=== PATIENT | female | born 1950 | race Caucasian/White ===

== ENCOUNTER 2016-05-08 09:04 | Day surgery (SDC) | payer OTHER, BC ==
[2016-05-07 15:18] VITALS: BMI 26.5
[2016-05-08] MEDS ORDERED: PROPOFOL 60 ML ONE (09:34)
[2016-05-08 11:21] VITALS: BP 109/55; PULSE 71; TEMP 98.3
--- NOTE | 2016-05-09 12:50 | PATH ---
Surgical Pathology Report Patient Name: OSEI JACKSON [facility]. Rec. #: [id number] /Age/Gender: 1950 (Age: 65) / F Account: [id number] Location: ASU-ENDOSCOPY Taken: 05/08/2016 Received: 05/08/2016 Reported: 05/09/2016 Physicians: Radames Luis D.O. Specimen(s) Received BX DESCENDING COLON Clinical History History of resection for TVA Colon polyp, patent anastomosis, diverticulosis Final Diagnosis COLON, DESCENDING, POLYP, BIOPSY/POLYPECTOMY: TUBULAR ADENOMA. Electronically Signed José Luis Umana M.D. Gross Description Received in formalin, labeled "polyp descending" is a hsieh, irregular portion of soft tissue measuring 0.3 cm in greatest dimension. The specimen is submitted in toto in one cassette. /05/08/201605/08/2016
== END 2016-05-08 11:23 | disposition home or self-care (01) ==
LOC: JASU-ENDO 09:04
PROVIDERS: ATTEND Internal Medicine Gastroenterology
PROC: 0DBM8ZX Excision of Descending Colon, Via Natural or Artificial Opening Endoscopic, Diagnostic (ICD-10-PCS; principal; 2016-05-08 10:00)
DX: D12.4 Benign neoplasm of descending colon (principal); K57.30 Diverticulosis of large intestine without perforation or abscess without bleeding; K64.8 Other hemorrhoids; Z98.0 Intestinal bypass and anastomosis status; R19.4 Change in bowel habit; J44.9 Chronic obstructive pulmonary disease, unspecified; E03.9 Hypothyroidism, unspecified; M81.0 Age-related osteoporosis without current pathological fracture; L30.9 Dermatitis, unspecified
CPT/HCPCS: 88305-TC

== ENCOUNTER 2016-09-26 09:37 | Emergency (ER) | payer OTHER, BC ==
[2016-09-26 09:54] VITALS: BP 151/65; PULSE 75; TEMP 97.7; BMI 26.2
[2016-09-26] MEDS ORDERED: IBUPROFEN 400 MG TABLET (FP) PO ONE ×2 (11:08→11:25)
--- NOTE | 2016-09-26 11:52 | PDOC ---
History of Present Illness - General Chief Complaint: Injury Stated Complaint: RIGHT KNEE AND LEFT FOOT PAIN Time Seen by Provider: 09/26/16 10:01 - History of Present Illness Initial Comments: 09/26/16 11:44 Chief complaint: Pain right knee, left foot History of present illness: Patient tripped and fell 2 days ago, injuring her right knee and left ankle. There is persistent pain and swelling with difficulty ambulating. Pain is most severe posterior right knee and lateral left foot. Review of systems: Patient denies distal numbness tingling pain or weakness of the right lower leg or the left foot. Denies pain or injury to the head neck chest abdomen spine and pelvis or other extremities. Past medical history: COPD, hypothyroidism, osteoporosis, prior right knee surgery uncertain of exact nature Social/family history reviewed and noncontributory. Physical exam: Alert and oriented well-developed well-nourished no acute distress cheerful and cooperative. However, patient has extreme difficulty bearing weight due to pain in the knee and ankle Afebrile, vital signs normal except for minimally elevated blood pressure of 151 /65. Head atraumatic. PERRLA, fundi benign, ENT clear Neck without tenderness or deformity, good range of motion without pain. No bruits masses or nodes Chest clear to P&A, full breath sounds throughout bilaterally, no wheezes rales or rhonchi. No chest wall or rib cage tenderness or deformity CV S1 and S2 distant without murmur rub or gallop pulses full and symmetric no JVD or edema no bruits Abdomen benign Neurological C2 to 12 intact. Strength full and symmetric. No focal sensory or motor deficits. Patient ambulating with a borrowed walker with difficulty bearing weight due to injuries Extremities: Right knee-no deformity. Superficial ecchymoses in the infra patellar area, laterally. Small effusion. Mild swelling. Patella and patellar retinaculum intact and nontender. No stress tenderness or laxity of the MCL or LCL. No point tenderness joint spaces. Lockman is positive, but due to prior surgery the significance of this is uncertain. Distal pulses full, no distal sensory or motor deficits. Left ankle and foot: Swelling mild erythema and point tenderness over the fifth metatarsal. No swelling or deformity of the ankle. No tenderness of the malleoli. No instability. Impression: Probable ACL injury right knee, probable fifth metatarsal fracture, no sign of ankle trauma. Plan: X-ray and further orthopedic management depending on results. Past History - Past Medical History Allergies/Adverse Reactions: Allergies Allergy/AdvReac Type Severity Reaction Status Date / Time nickel Allergy Rash Verified 09/26/16 09:43 No Known Drug Allergies Allergy Verified 09/26/16 09:43 Home Medications: Ambulatory Orders Albuterol Sulfate Inhaler - [Ventolin HFA Inhaler -] 1 inh PO DAILY PRN Calcium Carbonate [Calcium] 600 mg PO DAILY 08/22/15 Cholecalciferol (Vitamin D3) [Vitamin D3] 2,000 unit PO DAILY 08/22/15 Levothyroxine [Synthroid -] 75 mcg PO DAILY 08/22/15 Tiotropium [place] [Spiriva] 2 inh PO DAILY 08/22/15 Alendronate Sodium/Vitamin D3 [Fosamax Plus D 70 mg-5,600 Iu vIT d] 1 each PO Q7D 09/12/15 Salmeterol/Fluticasone [Advair 500Mcg/50Mcg -] 1 inh PO DAILY 05/07/16 Anemia: No Asthma: No Cancer: No Cardiac Disorders: No CVA: No COPD: Yes (uses inhaler) CHF: No Dementia: No Diabetes: No Dialysis: No GI Disorders: No Disorders: Yes (DIVERTICULOSIS,INTERNAL HEMORRHOIDS,SIGMOID MASS) HTN: No Hypercholesterolemia: No HIV: No Kidney Stones: No Liver Disease: No Suicide Attempt (Hx): No Seizures: No Thyroid Disease: Yes (HYPO) - Surgical History Abdominal Surgery: Yes (COLON RESECTION FROM LARGE ADENOMA) Appendectomy: No Cardiac Surgery: No Cholecystectomy: No Lung Surgery: No Neurologic Surgery: No Orthopedic Surgery: Yes (LT CARPAL TUNNEL; KYPOPLASTY OF SPINE X 2; RT KNEE ARTHROSCOPY) - Immunization History Td Vaccination: Yes Immunization Up to Date: Yes - Psycho/Social/Smoking Cessation Hx Anxiety: No Suicidal Ideation: No Smoking Status: No Smoking History: Former smoker Years of Tobacco Use: 40 Have you smoked in the past 12 months: Yes Number of Cigarettes Smoked Daily: 7 If you are a former smoker, when did you quit?: 07/2016 Cigars Per Day: 0 Information on smoking cessation initiated: Yes 'Breaking Loose' booklet given: 09/26/16 Hx Alcohol Use: No Drug/Substance Use Hx: No Substance Use Type: None Hx Substance Use Treatment: No *Physical Exam - Vital Signs Last Vital Signs Temp Pulse Resp BP Pulse Ox 97.7 F 75 18 151/65 95 09/26/16 09:40 09/26/16 09:40 09/26/16 09:40 09/26/16 09:40 09/26/16 09:40 ED Treatment Course - RADIOLOGY Radiology Studies Ordered: Category Date Time Status FOOT-LEFT [RAD] Stat Radiology 09/26/16 11:08 Ordered KNEE 2 POS-RIGHT [RAD] Stat Radiology 09/26/16 11:07 Ordered - Medications Given in the ED: ED Medications Discontinued Medications Generic Name Dose Route Start Last Admin Trade Name Gregg PRN Reason Stop Dose Admin Ibuprofen 400 mg 09/26/16 11:08 09/26/16 11:26 Motrin - PO 09/26/16 11:09 400 mg ONCE ONE Administration Medical Decision Making - Medical Decision Making 09/26/16 12:21 X-ray of the right knee and left foot are negative. Andrey wrap applied to the knee into the ankle. Instructions for rest ice and elevation. Continue to use walker for comfort, but encouraged weight-bearing with limited ambulation Orthopedic follow-up if pain or swelling persists one week. Adequately ambulatory at discharge with her to follow-up as directed. *DC/Admit/Observation/Transfer Diagnosis at time of Disposition: Sprain of foot Qualifiers: Encounter type: initial encounter Laterality: left Qualified Code(s): S93.602A - Unspecified sprain of left foot, initial encounter Sprain, knee Qualifiers: Encounter type: initial encounter Involved ligament of knee: anterior cruciate ligament Laterality: right Qualified Code(s): S83.511A - Sprain of anterior cruciate ligament of right knee, initial encounter - Discharge Dispostion Disposition: HOME Condition at time of disposition: Improved Admit: No - Referrals Referrals: Darnell Osorio MD [Staff Physician] - 1 week - Patient Instructions Printed Discharge Instructions: DI for Foot Sprain, DI for Knee Sprain, How to Apply an Andrey Wrap Additional Instructions: Rest ice elevation Andrey wrap Advil, Motrin, ibuprofen, or Aleve for pain swelling and inflammation. See orthopedist if pain or swelling persists one week for recheck, further treatment
== END 2016-09-26 12:39 | disposition home or self-care (01) ==
LOC: FER 09:37
DX: S93.602A Unspecified sprain of left foot, initial encounter (principal); S83.511A Sprain of anterior cruciate ligament of right knee, initial encounter; W18.30XA Fall on same level, unspecified, initial encounter; Y93.89 Activity, other specified; Y92.9 Unspecified place or not applicable; J44.9 Chronic obstructive pulmonary disease, unspecified; E03.9 Hypothyroidism, unspecified; N39.9 Disorder of urinary system, unspecified
CPT/HCPCS: 73560-TC-RT; 73630-TC-LT; 99282-25

== ENCOUNTER 2017-07-01 19:51 | Emergency (ER) | payer OTHER, BC ==
[2017-07-01] MEDS ORDERED: DEXAMETHASONE SOD PHOSPHATE 10 MG/1 ML VIAL ONE (20:10)
[2017-07-01] MEDS ORDERED: ALBUTEROL SO4 2.5/IPRATROPIUM 0.5 INH SOL 3 ML VIAL.NEB. NEB ONE ×2 (20:11→22:16)
[2017-07-01 20:13] VITALS: BP 127/68; PULSE 83; TEMP 98.2; BMI 28.6
--- NOTE | 2017-07-01 20:24 | PDOC ---
Attending Attestation - HPI HPI: 07/01/17 20:52 The patient is a 66 year old female with past medical history of COPD, asthma and hypothyroidism is brought to the emergency department via EMS after an anaphylactic reaction. As per the EMS, when they arrived they noticed she had blue lips, red face, urticaria across the skin and wasn't moving air well. The patient was given decadron and benadryl, she was given 600 of fluids followed by an increase in blood pressure. The patient states she currently has chest tightness. The patient reports she had a dental extraction earlier today, states taking an amoxicillin after. The patient reports she had taken amoxicillin in the past without reaction. Denies any loss of sensation. Allergies: nickel, NKDA Surgical history: orthopedic surgery: RIGHT KNEE ARTHROSCOPY 1999/KYPHOPLASTY 2012 Social history: Patient reports the use of cigarettes. Denies the use of alcohol or recreational drugs. PCP: Dr. Willard Ku MD. - Medical Decision Making 07/01/17 20:52 Documentation prepared by Kalie Webb, acting as medical oncology physician for Escobar Mosher DO <Kalie Webb - Last Filed: 07/01/17 20:52> - Resident Resident Name: Raz Peñaloza - ED Attending Attestation I have performed the following: I have examined & evaluated the patient, The case was reviewed & discussed with the resident, I agree w/resident's findings & plan, Exceptions are as noted - Physicial Exam PE: 07/01/17 20:30 *Physical Exam General Appearance: Yes: Appropriately Dressed. No: Apparent Distress, Intoxicated HEENT: positive: EOMI, SURYA, Normal ENT Inspection, Normal Voice, TMs Normal, Pharynx Normal. negative: Pale Conjunctivae, Photophobia, Scleral Icterus (R), Scleral Icterus (L) Neck: positive: Trachea midline, Normal Thyroid, Supple. negative: Tender, Rigid, Carotid bruit, Stridor, Lymphadenopathy (R), Lymphadenopathy (L), Thyromegaly Respiratory/Chest: positive: end expiratory wheezing bilaterally mild respiratory distress negative: Chest Tender, Accessory Muscle Use, Labored Respiration, RES, Crackles, Rales, Rhonchi, Stridor, Dullness Cardiovascular: positive: Regular Rhythm, Regular Rate, S1, S2. negative: Edema , JVD, Murmur, Bradycardia, Tachycardia Vascular Pulses: Dorsalis-Pedis (R): 2+, Doralis-Pedis (L): 2+ Gastrointestinal/Abdominal: positive: Normal Bowel Sounds, Flat, Soft. negative : Tender, Organomegaly, Pulsatile Mass, Increased Bowel Sounds, Decreased BS, Distended, Guarding, Rebound, Hernia, Hepatomegaly, Spleenomegaly Lymphatic: negative: Adenopathy, Tenderness Musculoskeletal: positive: Normal Inspection. negative: CVA Tenderness, Decreased Range of Motion Extremity: positive: Normal Capillary Refill, Normal Inspection, Normal Range of Motion, Pelvis Stable. negative: Tender, Pedal Edema, Swelling, Erythema Integumentary: positive: Normal Color, Dry, Warm. negative: Cyanotic, Erythema , Jaundice, Rash Neurologic: positive: hot end operator II-XII NML intact, Fully Oriented, Alert, Normal Mood/ Affect, Motor Strength 5/5. negative: EOM Palsy, Facial Droop, Sensory Deficit <Escobar Mosher - Last Filed: 07/01/17 22:21> Discharge Disposition - Discharge Dispostion Last Admission D/C Date: 09/18/15 Decision to Admit order: No <Escobar Mosher - Last Filed: 07/01/17 22:21> - Diagnosis Allergic reaction - Discharge Dispostion Disposition: HOME Condition at time of disposition: Improved - Prescriptions Prescriptions: Albuterol Sulfate Inhaler - [Ventolin HFA Inhaler -] 1 inh PO Q6H PRN #1 inhaler PRN Reason: Asthma Diphenhydramine HCl [Benadryl Capsules -] 25 mg PO TID #30 capsule Loratadine [Claritin] 10 mg PO DAILY #30 tablet predniSONE [Deltasone -] 20 mg PO DAILY #5 tablet - Referrals Referrals: Anatoliy Marx MD [Primary Care Provider] - - Patient Instructions Printed Discharge Instructions: DI for General Allergic Reactions Additional Instructions: Take medication as directed. Follow up with Dr. Marx tomorrow. - Post Discharge Activity
--- NOTE | 2017-07-01 20:33 | PDOC ---
History of Present Illness <Kalie Webb - Last Filed: 07/01/17 21:08> - General History Source: Patient, EMS Exam Limitations: No Limitations - History of Present Illness Initial Comments: 07/01/17 20:29 The patient is a 66F with a PMH of COPD, hypothyroidism, osteoporosis, prior right knee surgery in the past, who presents to the ER after having an allergic reaction. The patient states that she had a dental extraction today and was given antibiotics to take after. She took her dose of amoxicillin and then began to feel tingling in her fingers. She also noticed that her skin was getting red, then felt some chest tightness. When she looked in the mirror, she notes that her face was red and her lips were blue. She called EMS. EMS states that the patient was hypoxic and hypotensive with diffuse wheezing and 2 BP's of 50's over 20's. They gave benadryl, decadron, and 650 of fluids and the patient became normotensive and normoxic. The patient's only complaints right now are chest tightness. <Raz Peñaloza - Last Filed: 07/01/17 22:22> - General Stated Complaint: ALLERGIC REACTION Time Seen by Provider: 07/01/17 20:16 Past History <Kalie Webb - Last Filed: 07/01/17 21:08> - Past Medical History Anemia: No Asthma: No Cancer: No Cardiac Disorders: No CVA: No COPD: Yes (uses inhaler) CHF: No Dementia: No Diabetes: No Dialysis: No GI Disorders: No Disorders: Yes (DIVERTICULOSIS,INTERNAL HEMORRHOIDS,SIGMOID MASS) HTN: No Hypercholesterolemia: No Kidney Stones: No Liver Disease: No Seizures: No Thyroid Disease: Yes (HYPO) - Surgical History Abdominal Surgery: Yes (COLON RESECTION FROM LARGE ADENOMA) Appendectomy: No Cardiac Surgery: No Cholecystectomy: No Lung Surgery: No Neurologic Surgery: No Orthopedic Surgery: Yes (LT CARPAL TUNNEL; KYPOPLASTY OF SPINE X 2; RT KNEE ARTHROSCOPY) - Immunization History Td Vaccination: Yes Immunization Up to Date: Yes - Suicide/Smoking/Psychosocial Hx Smoking Status: No Smoking History: Never smoked Years of Tobacco Use: 40 Have you smoked in the past 12 months: No Number of Cigarettes Smoked Daily: 7 If you are a former smoker, when did you quit?: 07/2016 Cigars Per Day: 0 Information on smoking cessation initiated: No 'Breaking Loose' booklet given: 09/26/16 Hx Alcohol Use: No Drug/Substance Use Hx: No Substance Use Type: None Hx Substance Use Treatment: No <Raz Peñaloza - Last Filed: 07/01/17 22:22> - Past Medical History Allergies/Adverse Reactions: Allergies Allergy/AdvReac Type Severity Reaction Status Date / Time amoxicillin Allergy Verified 07/01/17 20:14 nickel Allergy Rash Verified 07/01/17 20:14 No Known Drug Allergies Allergy Verified 09/26/16 09:43 Home Medications: Ambulatory Orders Calcium Carbonate [Calcium] 600 mg PO DAILY 08/22/15 Cholecalciferol (Vitamin D3) [Vitamin D3] 2,000 unit PO DAILY 08/22/15 Levothyroxine [Synthroid -] 75 mcg PO DAILY 08/22/15 Tiotropium [place] [Spiriva] 2 inh PO DAILY 08/22/15 Alendronate Sodium/Vitamin D3 [Fosamax Plus D 70 mg-5,600 Iu vIT d] 1 each PO Q7D 09/12/15 Salmeterol/Fluticasone [Advair 500Mcg/50Mcg -] 1 inh PO DAILY 05/07/16 Albuterol Sulfate Inhaler - [Ventolin HFA Inhaler -] 1 inh PO Q6H PRN #1 inhaler 07/01/17 Diphenhydramine HCl [Benadryl Capsules -] 25 mg PO TID #30 capsule 07/01/17 Loratadine [Claritin] 10 mg PO DAILY #30 tablet 07/01/17 predniSONE [Deltasone -] 20 mg PO DAILY #5 tablet 07/01/17 Review of Systems - Review of Systems Able to Perform ROS?: Yes Comments:: 07/01/17 21:15 GENERAL/CONSTITUTIONAL: No fever or chills. No weakness. HEAD, EYES, EARS, NOSE AND THROAT: No change in vision. No ear pain or discharge. No sore throat. CARDIOVASCULAR: Positive for chest tightness. No chest pain, palpitations, or lightheadedness. RESPIRATORY: Positive for mild SOB. No cough, wheezing, or hemoptysis. GASTROINTESTINAL: No nausea, vomiting, diarrhea, constipation, or abdominal pain. GENITOURINARY: No dysuria, frequency, hematuria, or change in urination. MUSCULOSKELETAL: No joint or muscle swelling or pain. No neck or back pain. SKIN: No rash or lesions. NEUROLOGIC: No headache, numbness, tingling, weakness, loss of consciousness, or change in strength/sensation. ENDOCRINE: No increased thirst. No abnormal weight change. HEMATOLOGIC/LYMPHATIC: No anemia, easy bleeding, or history of blood clots. ALLERGIC/IMMUNOLOGIC: Positive for allergic reaction. Is the patient limited Ghanaian proficient: No <Raz Peñaloza - Last Filed: 07/01/17 22:22> *Physical Exam - Vital Signs Last Vital Signs Temp Pulse Resp BP Pulse Ox 98.2 F 83 18 127/68 100 07/01/17 20:07 07/01/17 20:07 07/01/17 20:07 07/01/17 20:07 07/01/17 20:07 <Kalie Webb - Last Filed: 07/01/17 21:08> - Vital Signs Last Vital Signs Temp Pulse Resp BP Pulse Ox 98.2 F 83 18 127/68 100 07/01/17 20:07 07/01/17 20:07 07/01/17 20:07 07/01/17 20:07 07/01/17 20:07 - Physical Exam Comments: 07/01/17 21:17 GENERAL: Well developed, well nourished. Awake and alert. No acute distress. HEENT: Normocephalic, atraumatic. Hearing grossly normal. Moist mucous membranes. PERRLA, EOMI. No conjunctival pallor. Sclera are non-icteric. Oropharynx is clear. Healing tooth extraction noted, stitches present, nonerythematous. NECK: Supple. Full ROM. No JVD. CARDIOVASCULAR: Regular rate and rhythm. No murmurs, rubs, or gallops. PULMONARY: No evidence of respiratory distress. Mild end-expiratory wheezes noted with decreased breath sounds in b/l lung marion. ABDOMINAL: Soft. Non-tender. Non-distended. No rebound or guarding. GENITOURINARY: No CVA tenderness bilaterally. MUSCULOSKELETAL: Normal range of motion at all joints. No bony deformities or tenderness. EXTREMITIES: No cyanosis. No clubbing. No edema. No calf tenderness. SKIN: Warm and dry. Normal capillary refill. No rashes. No jaundice. NEUROLOGICAL: Alert, awake, appropriate. Cranial nerves 2-12 intact. Normal speech. Gait is normal without ataxia. PSYCHIATRIC: Cooperative. Good eye contact. Appropriate mood and affect. <Raz Peñaloza - Last Filed: 07/01/17 22:22> ED Treatment Course - LABORATORY CBC & Chemistry Diagram: 07/01/17 21:30 07/01/17 21:30 <Raz Peñaloza - Last Filed: 07/01/17 22:22> Medical Decision Making - Medical Decision Making 07/01/17 21:08 The EKG was read by Dr. Peñaloza at 20:59:29 Vent. rate: 74 bpm MO interval 132 ms QRS duration: 76 ms QT/QTc: 392/435 ms Normal sinus rhythm with poor R wave progression. <Kalie Webb - Last Filed: 07/01/17 21:08> - Medical Decision Making 07/01/17 21:18 The patient is a 66F with a PMH of COPD and hypothyroidism who presents to the ER after having a possible aniphylactic reaction. EMS states that the patient was hypoxic to 70's and hypotensive to 50's/20's. They gave her decadron, benadryl, and fluid bolus. In our facility, the patient is normotensive and has complaints of only chest tightness. EKG not indicative of acute ischemia. Will send basic labs including troponin. Pt satting 96 on RA and states she feels much better. Will monitor closely. 07/01/17 22:21 Pt is normoxic on RA with no wheezing on exam. I have discussed the importance of f/u and discontinuation of the abx until she sees her doctor. Trop negative. Pt agrees and is ready for d/c. <Raz Peñaloza - Last Filed: 07/01/17 22:22> *DC/Admit/Observation/Transfer <Kalie Webb - Last Filed: 07/01/17 21:08> <Raz Peñaloza - Last Filed: 07/01/17 22:22> Diagnosis at time of Disposition: Allergic reaction Qualifiers: Encounter type: initial encounter Qualified Code(s): T78.40XA - Allergy, unspecified, initial encounter - Discharge Dispostion Disposition: HOME Condition at time of disposition: Improved - Prescriptions Prescriptions: Albuterol Sulfate Inhaler - [Ventolin HFA Inhaler -] 1 inh PO Q6H PRN #1 inhaler PRN Reason: Asthma Diphenhydramine HCl [Benadryl Capsules -] 25 mg PO TID #30 capsule Loratadine [Claritin] 10 mg PO DAILY #30 tablet predniSONE [Deltasone -] 20 mg PO DAILY #5 tablet - Referrals Referrals: Anatoliy Marx MD [Primary Care Provider] - - Patient Instructions Printed Discharge Instructions: DI for General Allergic Reactions Additional Instructions: Take medication as directed. Follow up with Dr. Marx tomorrow. Please return to the ER if you have any signs or symptoms of chest pain, shortness of breath, uncontrollable fever, chills, nausea, vomiting, numbness, tingling, or weakness in any part of your body, changes in vision, or slurred speech. Please return to the ER if symptoms persist, worsen, or new symptoms arise.
[2017-07-01] MEDS ORDERED: MAGNESIUM SULF 50% (8.12 MEQ/2 ML-1 GM VIAL) ONE (21:21)
[2017-07-01] MEDS ORDERED: FAMOTIDINE 20 MG/50 ML IVPB 20 MG/50 ML MG IVPB ONE (21:21)
[2017-07-01 21:41] LABS: BASO % 0.2 % (0-2.0); EOS % 0.5 % (0-4.5); HEMATOCRIT 41.3 % (32.4-45.2); HEMOGLOBIN 13.5 GM/dL (10.7-15.3); LYMPH % 7.8 % (8-40); MCH 28.5 pg (25.7-33.7); MCHC 32.6 g/dl (32.0-36.0); MEAN CELL VOLUME 87.5 fl (80-96); MEAN PLT VOLUME 8.7 fl (7.5-11.1); MONO % 4.5 % (3.8-10.2); PLATELET COUNT 297 K/MM3 (134-434); RBC 4.73 M/mm3 (3.60-5.2); RDW 14.2 % (11.6-15.6); WHITE BLOOD COUNT 11.9 K/mm3 (4.0-10.0)
[2017-07-01 22:05] LABS: ALBUMIN 3.2 g/dl (3.4-5.0); ANION GAP 9 (8-16); BILIRUBIN,TOTAL 0.4 mg/dL (0.2-1.0); BLOOD UREA NITROGEN 18 mg/dL (7-18); CALCIUM 7.9 mg/dL (8.5-10.1); CHLORIDE 106 mmol/L (98-107); CO2 26 mmol/L (21-32); CREATININE 0.9 mg/dL (0.55-1.02); GLUCOSE,RANDOM 140 mg/dL (74-106); POTASSIUM 3.9 mmol/L (3.5-5.1); SGOT/AST 13 U/L (15-37); SGPT/ALT 14 U/L (12-78); SODIUM 141 mmol/L (136-145); TOT PROT 6.1 g/dl (6.4-8.2)
[2017-07-01 22:07] LABS: ALK PHOS 56 U/L (45-117)
[2017-07-01] MEDS ORDERED: ALBUTEROL SO4 2.5/IPRATROPIUM 0.5 INH SOL 3 ML VIAL.NEB. NEB STA (22:17)
--- NOTE | 2017-07-02 11:56 | EKG ---
Test Reason : Blood Pressure : / mmHG Vent. Rate : 074 BPM Atrial Rate : 074 BPM P-R Int : 132 ms QRS Dur : 076 ms QT Int : 392 ms P-R-T Axes : 078 017 041 degrees QTc Int : 435 ms POOR DATA QUALITY, INTERPRETATION MAY BE ADVERSELY AFFECTED NORMAL SINUS RHYTHM POSSIBLE LEFT ATRIAL ENLARGEMENT LOW VOLTAGE QRS CANNOT RULE OUT ANTERIOR INFARCT (CITED ON OR BEFORE 30-SEP-2000) ABNORMAL ECG WHEN COMPARED WITH ECG OF 20-MAY-2014 00:52, NONSPECIFIC T WAVE ABNORMALITY NO LONGER EVIDENT IN LATERAL LEADS Confirmed by REFUGIO BEST MD ([id number]) on 07/02/2017 11:56:38 AM Referred By: Confirmed By:REFUGIO BEST MD
== END 2017-07-01 22:29 | disposition home or self-care (01) ==
LOC: JER 19:51
PROC: 3E033GC Introduction of Other Therapeutic Substance into Peripheral Vein, Percutaneous Approach (ICD-10-PCS; principal; 2017-07-01)
PROC: 3E0F7GC Introduction of Other Therapeutic Substance into Respiratory Tract, Via Natural or Artificial Opening (ICD-10-PCS; 2017-07-01)
DX: T78.49XA Other allergy, initial encounter (principal); X58.XXXA Exposure to other specified factors, initial encounter
CPT/HCPCS: 36415; 80053; 82550; 84484; 85025; 93005; 93010; 99281-25; J7620

== ENCOUNTER 2018-05-05 09:25 | Day surgery (SDC) | payer OTHER, BC ==
[2018-04-29 12:07] VITALS: BMI 26.5
[2018-05-05] MEDS ORDERED: PROPOFOL 20 ML ONE ×2 (10:33)
[2018-05-05] MEDS ORDERED: ONDANSETRON 4 MG/2 ML VIAL ONE (10:42)
[2018-05-05 11:59] VITALS: BP 112/67; PULSE 69; TEMP 97.9
--- NOTE | 2018-05-07 14:31 | PATH ---
Surgical Pathology Report Patient Name: EDWINA JACKSON [facility]. Rec. #: [id number] /Age/Gender: 1950 (Age: 67) / F Account: [id number] Location: [facility] Taken: 05/05/2018 Received: 05/05/2018 Reported: 05/07/2018 Physicians: Alexandria Thomas M.D. Specimen(s) Received RECTUM Clinical History History of polyps Postoperative diagnosis: Polyps, hemorrhoids Final Diagnosis RECTAL POLYP, BIOPSY: COLONIC MUCOSA WITH REACTIVE LYMPHOID AGGREGATE IN THE LAMINA PROPRIA. Electronically Signed Marty Curran M.D. Gross Description Received in formalin, labeled "polyp rectum" is a hsieh, irregular portion of soft tissue measuring 0.3 cm. in greatest dimension. The specimen is submitted in toto in one cassette. /05/06/2018 [facility]05/06/2018
== END 2018-05-05 11:50 | disposition home or self-care (01) ==
LOC: FASU-ENDO 09:25
PROVIDERS: ATTEND Internal Medicine Gastroenterology
PROC: 0DBP8ZX Excision of Rectum, Via Natural or Artificial Opening Endoscopic, Diagnostic (ICD-10-PCS; principal; 2018-05-05 10:51)
DX: Z86.010 Personal history of colon polyps (principal); K62.1 Rectal polyp; K64.1 Second degree hemorrhoids
CPT/HCPCS: 88305-TC

== ENCOUNTER 2018-06-17 17:29 | Emergency (ER) | payer OTHER, BC ==
--- NOTE | 2018-06-17 17:38 | PDOC ---
Rapid Medical Evaluation Chief Complaint: Shortness of Breath Time Seen by Provider: 06/17/18 17:37 Medical Evaluation: Allergies Allergy/AdvReac Type Severity Reaction Status Date / Time amoxicillin Allergy Severe RESPIRATORY Verified 04/29/18 12:07 DISTRESS nickel Allergy Rash Verified 10/15/17 09:48 06/17/18 17:37 I have performed a brief in-person evaluation of this patient. The patient presents with a chief complaint of: short of breath Pertinent physical exam findings:stable and in NAD, non-focal I have ordered the following:labs/ekg The patient will proceed to the ED for further evaluation.
[2018-06-17 17:42] VITALS: BMI 21.4
--- NOTE | 2018-06-17 17:44 | PDOC ---
History of Present Illness - General Chief Complaint: Shortness of Breath Stated Complaint: DIFF. BREATHING Time Seen by Provider: 06/17/18 17:37 History Source: Patient, Family - History of Present Illness Initial Comments: 06/17/18 18:22 67F with PMH of COPD/emphysema/asthma, lung cancer s/p resection of the right lower lobe in October and Colon polyp s/p partial colon resection in 2015, hypothyroidism, osteoporosis, prior right knee surgery in the past, who presents to the ER for progressive difficulty breathing over the past day and progressive pleuritic lower back pain worse on the right and worse on inspiration for the past 2-3 days. She also endorses white productive cough, chills and diaphoresis today. Took nebulizer treatment today x2 of albuterol with little relief. Trilogy inhaler this morning. She is not on any chemotherapy or radiation treatment. No recent travel, hemoptysis, period of immobilization. 06/17/18 18:45 Past History - Past Medical History Allergies/Adverse Reactions: Allergies Allergy/AdvReac Type Severity Reaction Status Date / Time amoxicillin Allergy Severe RESPIRATORY Verified 04/29/18 12:07 DISTRESS nickel Allergy Rash Verified 10/15/17 09:48 Home Medications: Ambulatory Orders Calcium Carbonate [Calcium] 600 mg PO DAILY 08/22/15 Levothyroxine [Synthroid -] 75 mcg PO DAILY 08/22/15 Albuterol Sulfate Inhaler - [Ventolin HFA Inhaler -] 1 inh PO Q6H PRN #1 inhaler 07/01/17 Cholecalciferol (Vitamin D3) [Vitamin D3] 2,000 iu PO DAILY 04/29/18 Fluticasone/Umeclidin/Vilanter [Trelegy Ellipta 100-62.5-25] 1 each IH DAILY Ibandronate Sodium 150 mg PO MONTHLY 04/29/18 Prednisone [Prednisone 50 MG TABLETS] 50 mg PO DAILY 3 Days #3 tablet 06/17/18 Anemia: No Asthma: No Cancer: Yes (lung CA) Cardiac Disorders: No CVA: No COPD: Yes CHF: No Dementia: No Diabetes: No Dialysis: No GI Disorders: Yes (DIVERTICULOSIS, SIGMOID MASS) Disorders: No HTN: No Hypercholesterolemia: No Kidney Stones: No Liver Disease: No Seizures: No Thyroid Disease: Yes (HYPO) - Surgical History Abdominal Surgery: Yes (COLON RESECTION FROM LARGE ADENOMA-2015) Appendectomy: No Cardiac Surgery: No Cholecystectomy: No Lung Surgery: Yes (RIGHT LOWER LUNG RESECTION-12/2017) Neurologic Surgery: No Orthopedic Surgery: Yes (RIGHT CARPATUNNEL; KYPOPLASTY OF SPINE X 2; KNEE ARTHROSCOPY) - Immunization History Td Vaccination: Yes Immunization Up to Date: Yes - Suicide/Smoking/Psychosocial Hx Smoking Status: No Smoking History: Never smoked Years of Tobacco Use: 40 Have you smoked in the past 12 months: No Number of Cigarettes Smoked Daily: 10 If you are a former smoker, when did you quit?: 2017 Cigars Per Day: 0 Information on smoking cessation initiated: No 'Breaking Loose' booklet given: 09/26/16 Hx Alcohol Use: No Drug/Substance Use Hx: No Substance Use Type: None Hx Substance Use Treatment: No Review of Systems - Review of Systems Able to Perform ROS?: Yes Is the patient limited Lao proficient: No Constitutional: Yes: Chills, Diaphoresis. No: Fever HEENTM: No: Symptoms Reported Respiratory: Yes: See HPI, Cough, Shortness of Breath, SOB with Exertion, SOB at Rest. No: Stridor, Wheezing, Hemoptysis Cardiac (ROS): No: Symptoms Reported, Chest Pain, Lightheadedness, Palpitations , Chest Tightness ABD/GI: No: Symptoms Reported : No: Symptoms Reported Musculoskeletal: Yes: See HPI, Back Pain Integumentary: No: Symptoms Reported Neurological: No: Symptoms reported All Other Systems: Reviewed and Negative *Physical Exam - Vital Signs Last Vital Signs Temp Pulse Resp BP Pulse Ox 97.6 F 77 26 H 161/77 93 L 06/17/18 17:40 06/17/18 17:40 06/17/18 17:40 06/17/18 17:40 06/17/18 17:40 - Physical Exam General Appearance: Yes: Nourished, Appropriately Dressed, Mild Distress HEENT: positive: EOMI, SURYA, Normal ENT Inspection. negative: Nasal Congestion , Rhinorrhea, Sinus Tenderness Neck: negative: Thyromegaly Respiratory/Chest: positive: Decreased Breath Sounds, Hyperresonant. negative: Chest Tender, Crackles, Rales, Rhonchi, Stridor, Wheezing Cardiovascular: positive: Regular Rhythm, S1, S2, Tachycardia. negative: Regular Rate Gastrointestinal/Abdominal: positive: Normal Bowel Sounds, Flat, Soft. negative : Tender Musculoskeletal: positive: Other (surgical scar over right lower back s/p surgical resection of right lower lobe.) Extremity: positive: Normal Capillary Refill, Normal Inspection, Normal Range of Motion Integumentary: positive: Normal Color, Dry, Warm, Other (flushed face) Neurologic: positive: Fully Oriented, Alert, Normal Mood/Affect, Normal Response , Motor Strength / ED Treatment Course - LABORATORY CBC & Chemistry Diagram: 06/17/18 18:05 06/17/18 17:38 Medical Decision Making - Medical Decision Making 06/17/18 18:44 67f with pmh of lung and colon resection, copd/emphysema/asthma presenting with sob, hypoxia and tachypnea at rest as well as occasional white mucus cough. We will start the patient immeduiately on nasal canula 2L O2. We will be careful not to give too much O2 to the patient due to her COPD history. Due to the patient's history of lung cancer and new nodule found in last ct chest from February we will repeat imaging study to follow progression. However due to her sob pleuritic pain and potential hypercoagulable status we will also rule out PE by selecting a CTA chest to evaluate both. Also on the differential this could potentially be a copd/asthma exacerbation for which will will treat in the meantime with Duoneb x2 immediately. As this could be some sort of infectious process of the lung (less likely as the patient is afebrile) we will get basic labs, cultures. 06/17/18 20:23 CTA chest: No CT evidence of pulmonary embolism or other acute intrathoracic pathology. Stable findings as noted Likeliest diagnosis is then some exacerbation of the patient COPD or asthma. Indeed the patient found great relief after the duoneb treatment we administered. She still feels tight so we will administer the second duoneb treatment and prednisone PO and will d/c with outpatient steroid treatment. She has an appointment with her PCp tomorrow. *DC/Admit/Observation/Transfer Diagnosis at time of Disposition: Hypoxia, COPD exacerbation - Discharge Dispostion Disposition: HOME Condition at time of disposition: Stable Decision to Admit order: No - Prescriptions Prescriptions: Prednisone [Prednisone 50 MG TABLETS] 50 mg PO DAILY 3 Days #3 tablet - Referrals Referrals: Anatoliy Marx MD [Primary Care Provider] - - Patient Instructions Printed Discharge Instructions: DI for Chronic Obstructive Pulmonary Disease Additional Instructions: Follow up with your pcp Dr. Marx tomorrow as per your scheduled appointment. come back to the emergency department for any new, worsening or concerning symptom such as but not limited to fever, shortness of breath or chest pain. - Post Discharge Activity
[2018-06-17] MEDS ORDERED: ALBUTEROL SO4 2.5/IPRATROPIUM 0.5 INH SOL 3 ML VIAL.NEB. NEB ONE ×4 (18:06→21:25)
[2018-06-17 18:19] LABS: BASO % 0.7 % (0-2.0); EOS % 6.5 % (0-4.5); HEMOGLOBIN 13.8 GM/dL (10.7-15.3); LYMPH % 21.1 % (8-40); MCH 29.2 pg (25.7-33.7); MCHC 33.6 g/dl (32.0-36.0); MEAN CELL VOLUME 86.8 fl (80-96); MEAN PLT VOLUME 8.9 fl (7.5-11.1); MONO % 10.9 % (3.8-10.2); NEUT % 60.8 % (42.8-82.8); PLATELET COUNT 277 K/MM3 (134-434); RBC 4.72 M/mm3 (3.60-5.2); RDW 14.3 % (11.6-15.6); WHITE BLOOD COUNT 6.6 K/mm3 (4.0-10.0)
[2018-06-17] MEDS ORDERED: LIDOCAINE 5% TOPICAL PATCH TP ONE (18:28)
[2018-06-17] MEDS ORDERED: LIDOCAINE 5% TOPICAL PATCH ONE (18:37)
[2018-06-17 18:42] LABS: ALBUMIN 3.6 g/dl (3.4-5.0); ALK PHOS 58 U/L (45-117); ANION GAP 7 MMOL/L (8-16); BILIRUBIN,TOTAL 0.2 mg/dL (0.2-1); BLOOD UREA NITROGEN 15 mg/dL (7-18); CALCIUM 9.3 mg/dL (8.5-10.1); CHLORIDE 105 mmol/L (98-107); CO2 26 mmol/L (21-32); CREATININE 0.7 mg/dL (0.55-1.3); GLUCOSE,RANDOM 83 mg/dL (74-106); POTASSIUM 4.3 mmol/L (3.5-5.1); SGOT/AST 19 U/L (15-37); SGPT/ALT 19 U/L (13-61); SODIUM 138 mmol/L (136-145); TOT PROT 7.2 g/dl (6.4-8.2)
[2018-06-17 19:09] LABS: INR 0.89 (0.83-1.09); PROTHROMBIN TIME (PATIENT) 10.5 SEC (9.7-13.0)
[2018-06-17 19:11] LABS: ACTIVATED PTT 32.7 SECONDS (25.2-36.5)
--- NOTE | 2018-06-17 19:26 | PDOC ---
Documentation entered by Maura Piedra SCRIBE, acting as scribe for Janeth Alfaro DO. Janeth Alfaro, DO: This documentation has been prepared by the Tadeo white Adrianna, SCRIBE, under my direction and personally reviewed by me in its entirety. I confirm that the documentation accurately reflects all work, treatment, procedures, and medical decision making performed by me. Attending Attestation - Resident Resident Name: Jon Lombardi - ED Attending Attestation I have performed the following: I have examined & evaluated the patient, The case was reviewed & discussed with the resident, I agree w/resident's findings & plan, Exceptions are as noted - HPI HPI: The patient is a 67 year old female, with a significant PMH of lung CA (s/p right lower lung resection 8 months ago), COPD, emphysema, asthma, hypothyroid, diverticulosis, sigmoid mass, and osteoporosis, who presents to the emergency department today complaining of low back pain for 3 days, and shortness of breath for one day. Patient notes her progressively worsening low back pain is pleuritic in nature, most prominent on her right side, and is exacerbated with inspiration. She reports progressively worsening difficulty breathing for the past day, with productive cough of white sputum (patient has cough at baseline secondary to her COPD, but current cough is not related). Patient notes these symptoms feel like her history of COPD exacerbation. She endorses relief when receiving neb while in the ED. The patient denies chest pain, headache and dizziness. Denies fever, chills, nausea, vomit, diarrhea and constipation. Denies dysuria, frequency, urgency and hematuria. Denies recent use of oral steroids or recent hospitalization for COPD exacerbation Allergies: Amoxicillin, nickel Past surgical history: Right lower lung resection, colon resection from large adenoma, left carpal tunnel release, kyphoplasty of spine x2, and right knee arthroscopy Social history: None reported PCP: Dr. Anatoliy Marx Bullet Swaging Machine Operator: Dr. Khoa Shelby 06/17/18 19:04 - Physicial Exam PE: GENERAL: +Feeling better after one neb. Speaking in full, clear sentences. Awake , alert, and fully oriented, in no acute distress HEAD: No signs of trauma EYES: PERRLA, EOMI, sclera anicteric, conjunctiva clear ENT: Auricles normal inspection, hearing grossly normal, nares patent, oropharynx clear without exudates. Moist mucosa NECK: Normal ROM, supple, no lymphadenopathy, JVD, or masses LUNGS: +Coarse breath sounds bilaterally, with soft expiratory wheezing at the upper lung field. +Tender to palpation over the lower fourth rib posteriorly, exacerbated with deep inspiration. No crackles HEART: Regular rate and rhythm, normal S1 and S2, no murmurs, rubs or gallops ABDOMEN: Soft, nontender, normoactive bowel sounds. No guarding, no rebound. No masses EXTREMITIES: Normal range of motion, no edema. No clubbing or cyanosis. No cords, erythema, or tenderness MUSCULOSKELETAL: +Tender to palpation over the lower fourth rib posteriorly, exacerbated with deep inspiration. NEUROLOGICAL: Cranial nerves II through XII grossly intact. Normal speech, normal gait SKIN: Warm, Dry, normal turgor, no rashes or lesions noted. 06/17/18 19:04 - Medical Decision Making 06/17/18 19:15 I, Dr. Janeth Alfaro, DO, attest that this document has been prepared under my direction and personally reviewed by me in its entirety. I further attest, that it accurately reflects all work, treatment, procedures and medical decision -making performed by me. 06/17/18 19:15 a/p: 67yo female with sob and R lower rib pain with deep inspiration -pt with lower lobe lung resection for lung ca -also hx of copd -diminished bs upon arrival -tachypic and low pulse ox upon arrival -given hx of lung ca will obtain cta chest - also last ct chest showed lung nodules -also will give nebs and steroids -will monitor andreassess -new cough - productive white sputum, no fever 06/17/18 20:42 pt states feeling better after 1 neb will give another neb for mild tightness and some wheezing on exam will give steroids for copd exac no acute pe or pna on ct pt updated on labs and imaging results 06/17/18 20:45 EXAM#: TYPE/EXAM: RESULT: [id number] CT/CHEST CTA Chest CT angiography Clinical information: evaluate for pulmonary embolism Impression: No CT evidence of pulmonary embolism or other acute intrathoracic pathology. Stable findings as noted above. Reported By: Doug Strauss MD 06/17 20:11 06/17/18 21:37 pt feeling much better requesting to go home has appt with pmd in the AM last pulse ox 99 Heart Score/ECG Review - ECG Intrepretation Comment:: 06/17/18 19:24 sinus at 60, nl axis, nl interval low voltage, poor r wave progression/anterior q waves which are age indeterminate
[2018-06-17] MEDS ORDERED: predniSONE 20 MG TABLET (UD) PO ONE (20:28)
[2018-06-17] MEDS ORDERED: predniSONE 20 MG TABLET (UD) ONE (20:52)
[2018-06-17] MEDS ORDERED: LIDOCAINE PATCH REMOVAL MC SCH (22:00)
[2018-06-17 22:08] VITALS: BP 143/71; PULSE 62; TEMP 97.9
--- NOTE | 2018-06-18 10:53 | EKG ---
Test Reason : Blood Pressure : / mmHG Vent. Rate : 060 BPM Atrial Rate : 060 BPM P-R Int : 122 ms QRS Dur : 074 ms QT Int : 410 ms P-R-T Axes : 051 043 040 degrees QTc Int : 410 ms POOR DATA QUALITY, INTERPRETATION MAY BE ADVERSELY AFFECTED NORMAL SINUS RHYTHM LOW VOLTAGE QRS CANNOT RULE OUT ANTERIOR INFARCT (CITED ON OR BEFORE 30-SEP-2000) NONSPECIFIC ST ABNORMALITY Confirmed by ZEB LILLY MD ([id number]) on 06/18/2018 10:53:23 AM Referred By: [email or web address] Confirmed By:ZEB LILLY MD
== END 2018-06-17 22:40 | disposition home or self-care (01) ==
LOC: JER 17:29
PROC: 3E0F7GC Introduction of Other Therapeutic Substance into Respiratory Tract, Via Natural or Artificial Opening (ICD-10-PCS; principal; 2018-06-17)
PROC: 3E0F7GC Introduction of Other Therapeutic Substance into Respiratory Tract, Via Natural or Artificial Opening (ICD-10-PCS; 2018-06-17)
DX: J44.1 Chronic obstructive pulmonary disease with (acute) exacerbation (principal); R09.02 Hypoxemia; J45.909 Unspecified asthma, uncomplicated; E03.9 Hypothyroidism, unspecified; Z85.118 Personal history of other malignant neoplasm of bronchus and lung; Z87.19 Personal history of other diseases of the digestive system
CPT/HCPCS: 36415; 71045-TC-FY; 71275-TC; 80053; 83605; 84484; 85025; 85610; 85730; 87040; 93005; 93010; 99283-25

== ENCOUNTER 2020-08-08 09:15 | Day surgery (SDC) | payer OTHER, BC ==
[2020-08-08 09:49] VITALS: BMI 27.4
[2020-08-08] MEDS ORDERED: LIDOCAINE HCL/PF 2% SDV 5ML VIAL ONE (10:42)
[2020-08-08] MEDS ORDERED: ONDANSETRON 4 MG/2 ML VIAL ONE (10:42)
[2020-08-08] MEDS ORDERED: PROPOFOL 20 ML ONE ×3 (10:43)
[2020-08-08 11:26] VITALS: PULSE 68; TEMP 97.6
[2020-08-08 11:42] VITALS: BP 112/52
== END 2020-08-08 12:35 | disposition home or self-care (01) ==
LOC: FASU-ENDO 09:15
PROVIDERS: ATTEND Internal Medicine Gastroenterology
PROC: 0DBN8ZX Excision of Sigmoid Colon, Via Natural or Artificial Opening Endoscopic, Diagnostic (ICD-10-PCS; 2020-08-08)
PROC: 0DBP8ZX Excision of Rectum, Via Natural or Artificial Opening Endoscopic, Diagnostic (ICD-10-PCS; 2020-08-08)
PROC: 0DBK8ZX Excision of Ascending Colon, Via Natural or Artificial Opening Endoscopic, Diagnostic (ICD-10-PCS; principal; 2020-08-08 10:50)
DX: Z86.010 Personal history of colon polyps (principal); D12.2 Benign neoplasm of ascending colon; D12.7 Benign neoplasm of rectosigmoid junction; K62.1 Rectal polyp; K64.1 Second degree hemorrhoids
CPT/HCPCS: 88305-TC

== ENCOUNTER → 2022-05-22 | Day surgery (SDC) | payer OTHER, BC | END | disposition home or self-care (01) | LOC: FMAMMOTONE 08:17 | PROVIDERS: ATTEND Family Medicine | PROC: 0HBT3ZX Excision of Right Breast, Percutaneous Approach, Diagnostic (ICD-10-PCS; principal; 2022-05-22) | DX: N60.11 Diffuse cystic mastopathy of right breast (principal); N64.89 Other specified disorders of breast; R92.0 Mammographic microcalcification found on diagnostic imaging of breast | CPT/HCPCS: 19081; 76098-TC-FY; 87899; 88305-TC; A4648 ==

== ENCOUNTER 2023-09-16 10:10 | Day surgery (SDC) | payer OTHER, BC ==
[2023-09-09 14:42] VITALS: BMI 29.4
[2023-09-16 12:26] VITALS: RESP 18; TEMP 98
[2023-09-16 12:35] VITALS: BP 104/68; PULSE 60
== END 2023-09-16 12:54 | disposition home or self-care (01) ==
LOC: FASU-ENDO 10:10
PROVIDERS: ATTEND Internal Medicine Gastroenterology
PROC: 0DB98ZX Excision of Duodenum, Via Natural or Artificial Opening Endoscopic, Diagnostic (ICD-10-PCS; 2023-09-16)
PROC: 0DB68ZX Excision of Stomach, Via Natural or Artificial Opening Endoscopic, Diagnostic (ICD-10-PCS; 2023-09-16)
PROC: 0DB48ZX Excision of Esophagogastric Junction, Via Natural or Artificial Opening Endoscopic, Diagnostic (ICD-10-PCS; 2023-09-16)
PROC: 0DBP8ZX Excision of Rectum, Via Natural or Artificial Opening Endoscopic, Diagnostic (ICD-10-PCS; principal; 2023-09-16 11:38)
DX: Z12.11 Encounter for screening for malignant neoplasm of colon (principal); K62.1 Rectal polyp; K64.1 Second degree hemorrhoids; K57.30 Diverticulosis of large intestine without perforation or abscess without bleeding; K44.9 Diaphragmatic hernia without obstruction or gangrene; K29.50 Unspecified chronic gastritis without bleeding; K21.00 Gastro-esophageal reflux disease with esophagitis, without bleeding; R10.13 Epigastric pain
CPT/HCPCS: 88305-TC; 88342-TC

== ENCOUNTER 2023-11-18 10:14 | Day surgery (SDC) | payer OTHER, BC ==
[2023-11-12 10:01] VITALS: BMI 28.4
[2023-11-18 12:17] VITALS: BP 150/72; PULSE 66; RESP 17; TEMP 97.2
== END 2023-11-18 12:31 | disposition home or self-care (01) ==
LOC: FASU-ENDO 10:14
PROVIDERS: ATTEND Internal Medicine Gastroenterology
PROC: 0DB68ZX Excision of Stomach, Via Natural or Artificial Opening Endoscopic, Diagnostic (ICD-10-PCS; 2023-11-18)
PROC: 0DB48ZX Excision of Esophagogastric Junction, Via Natural or Artificial Opening Endoscopic, Diagnostic (ICD-10-PCS; principal; 2023-11-18 11:46)
DX: K22.70 Barrett's esophagus without dysplasia (principal); K21.00 Gastro-esophageal reflux disease with esophagitis, without bleeding; K29.50 Unspecified chronic gastritis without bleeding; K44.9 Diaphragmatic hernia without obstruction or gangrene
CPT/HCPCS: 88305-TC; 88342-TC

== ENCOUNTER 2024-08-25 10:35 | Emergency (ER) | payer OTHER, BC ==
[2024-08-25 11:02] VITALS: RESP 20; TEMP 100; BMI 28.9
[2024-08-25] MEDS ORDERED: ALBUTEROL SO4 2.5/IPRATROPIUM 0.5 INH SOL 3 ML VIAL.NEB. NEB ONE (12:16)
[2024-08-25 12:20] LABS: ABSOLUTE IMMATURE GRANULOCYTES 0.02 x10^3/uL (0.0-0.031); BASOPHILS # 0.04 x10^3/uL (0.01-0.08); EOSINOPHIL % 3.0 % (0.7-5.8); EOSINOPHILS # 0.27 x10^3/uL (0.04-0.36); MCHC 32.7 g/dl (32.2-35.5); MEAN CELL VOLUME 87.2 fl (79.4-94.8); MEAN PLT VOLUME 10.4 fl (9.4-12.3); MONOCYTE # 1.14 x10^3/uL (0.24-0.86); MONOCYTE % 12.7 % (4.7-12.5); RDW 13.3 % (12.4-16.6)
[2024-08-25] MEDS: ALBUTEROL SO4 2.5/IPRATROPIUM 0.5 INH SOL 3 ML VIAL.NEB. NEB ONE (12:30)
[2024-08-25 13:11] LABS: ALK PHOS 57 U/L (45-117); CO2 30 mmol/L (21-32); CREATININE 0.8 mg/dl (0.6-1.3); GLUCOSE,RANDOM 105 mg/dl (74-106); SGOT/AST 11 U/L (15-37); SGPT/ALT 9 U/L (7-52); TOT PROT 6.3 g/dl (6.4-8.2)
[2024-08-25 13:47] LABS: BG HCT 42.0 % (32.4-45.2); VENOUS BASE EXCESS 2.5 mmol/L (-2-2); VENOUS O2 SATURATION 51.7 % (70-80); VENOUS PCO2 51.5 mmHg (38-52); VENOUS PH 7.366 (7.310-7.410)
[2024-08-25 14:07] LABS: N-TERMINAL BNP 160.1 pg/ml (5-125)
[2024-08-25 14:44] VITALS: BP 103/80; PULSE 84
[2024-08-25 15:08] LABS: HCV DIAGNOSTIC IN-HOUSE W/RFLX NON-REACTIVE (NONREACTIVE)
[2024-08-25 15:09] LABS: HIV INTERPRETATION NEGATIVE (NEGATIVE)
== END 2024-08-25 15:37 | disposition home or self-care (01) ==
LOC: FER 10:35
PROC: 3E0F7GC Introduction of Other Therapeutic Substance into Respiratory Tract, Via Natural or Artificial Opening (ICD-10-PCS; principal; 2024-08-25)
DX: R53.1 Weakness (principal); R53.81 Other malaise; R06.02 Shortness of breath
CPT/HCPCS: 36415; 71046-TC-FY; 80053; 82803; 83880; 84484; 85025; 86803; 87389; 87637-QW; 93005; 94640; 99285-25

== ENCOUNTER 2024-09-06 14:24 | Inpatient (IN) | payer OTHER, BC ==
[2024-09-06] MEDS: ALBUTEROL SO4 2.5/IPRATROPIUM 0.5 INH SOL 3 ML VIAL.NEB. NEB ONE ×2 (14:58→15:23)
[2024-09-06 15:09] LABS: ABSOLUTE IMMATURE GRANULOCYTES 0.17 x10^3/uL (0.0-0.031); BASOPHILS # 0.04 x10^3/uL (0.01-0.08); EOSINOPHIL % 1.4 % (0.7-5.8); EOSINOPHILS # 0.16 x10^3/uL (0.04-0.36); MCHC 32.6 g/dl (32.2-35.5); MEAN CELL VOLUME 86.1 fl (79.4-94.8); MEAN PLT VOLUME 10.6 fl (9.4-12.3); MONOCYTE # 1.21 x10^3/uL (0.24-0.86); MONOCYTE % 10.5 % (4.7-12.5); RDW 13.0 % (12.4-16.6)
[2024-09-06] MEDS ORDERED: ALBUTEROL SO4 2.5/IPRATROPIUM 0.5 INH SOL 3 ML VIAL.NEB. NEB ONE (15:20)
[2024-09-06] MEDS: ALBUTEROL SO4 2.5/IPRATROPIUM 0.5 INH SOL 3 ML VIAL.NEB. NEB SCH (15:30)
[2024-09-06 15:58] LABS: ALK PHOS 61.0 U/L (45-117); CO2 26.0 mmol/L (21-32); CREATININE 0.9 mg/dl (0.6-1.3); GLUCOSE,RANDOM 102.0 mg/dl (74-106); SGOT/AST 14.0 U/L (15-37); SGPT/ALT 11.0 U/L (7-52); TOT PROT 6.7 g/dl (6.4-8.2)
[2024-09-06 16:59] LABS: BG HCT 44.0 % (32.4-45.2); VENOUS BASE EXCESS 2.8 mmol/L (-2-2); VENOUS O2 SATURATION 97.7 % (70-80); VENOUS PCO2 40.8 mmHg (38-52); VENOUS PH 7.441 (7.310-7.410)
[2024-09-06 18:06] LABS: HCV DIAGNOSTIC IN-HOUSE W/RFLX NON-REACTIVE (NONREACTIVE); HIV INTERPRETATION NEGATIVE (NEGATIVE)
[2024-09-06] MEDS: HEPARIN NA (PORCINE) 5,000 UNITS/ML 1ML VIAL IVPUSH ONE (19:03)
[2024-09-06] MEDS: HEPARIN INFUSION - 25,000 UNITS/500 ML INFUS.BAG IVPB SCH (19:07)
[2024-09-06] MEDS ORDERED: ACETAMINOPHEN INJECTION 100 ML ONE (22:30)
[2024-09-06] MEDS: ACETAMINOPHEN 1000 MG/100 ML BAG IVPB ONE (22:36)
[2024-09-07] MEDS: FENTANYL CITRATE/PF 50 MCG/ML VIAL IVPUSH ONE ×4 (01:25→21:04)
[2024-09-07] MEDS: BUDESONIDE/FORMETEROL FUMARATE 160/4.5 mcg INHALER IH SCH (01:50)
[2024-09-07 01:57] LABS: INR 1.17 (0.83-1.09); PROTHROMBIN TIME (PATIENT) 12.8 SEC (9.7-13.0)
[2024-09-07] MEDS: ALBUTEROL SO4 0.083% IH SOL 2.5 MG/3 ML VIAL.NEB. NEB PRN (02:25)
[2024-09-07 02:31] LABS: ACTIVATED PTT 114.2 SECONDS (25.2-36.5)
[2024-09-07 04:41] LABS: ALK PHOS 68.0 U/L (45-117); CO2 31.0 mmol/L (21-32); CREATININE 0.8 mg/dL (0.55-1.3); GLUCOSE,RANDOM 113.0 mg/dL (74-106); SGOT/AST 25.0 U/L (15-37); SGPT/ALT 14.0 U/L (13-61); TOT PROT 5.9 g/dl (6.4-8.2)
[2024-09-07] MEDS: LEVOTHYROXINE NA 75 MCG TABLET (FP) PO SCH (06:04)
[2024-09-07] MEDS ORDERED: ACETAMINOPHEN 325 MG TABLET (FP) ONE (06:35)
[2024-09-07] MEDS: ACETAMINOPHEN 500 MG TABLET (FP) PO PRN (06:41)
[2024-09-07 07:53] LABS: ABSOLUTE IMMATURE GRANULOCYTES 0.15 x10^3/uL (0.0-0.031); BASOPHILS # 0.12 x10^3/uL (0.01-0.08); EOSINOPHIL % 4.0 % (0.7-5.8); EOSINOPHILS # 0.46 x10^3/uL (0.04-0.36); MCHC 32.2 g/dl (32.2-35.5); MEAN CELL VOLUME 86.5 fl (79.4-94.8); MEAN PLT VOLUME 10.6 fl (9.4-12.3); MONOCYTE # 1.21 x10^3/uL (0.24-0.86); MONOCYTE % 10.6 % (4.7-12.5); RDW 13.5 % (12.4-16.6)
[2024-09-07] MEDS: TIMOLOL 0.5% OPHTHALMIC SOL 5 ML BOTTLE OD SCH (09:01)
[2024-09-07] MEDS: PANTOPRAZOLE SODIUM 40 MG VIAL IVPUSH SCH (09:50)
[2024-09-07] MEDS: MUPIROCIN 2% TOPICAL OINTMENT FOR DECOLONIZATION NS SCH (09:52)
[2024-09-07] MEDS: HEPARIN NA (PORCINE) 5,000 UNITS/ML 1ML VIAL IVPUSH PRN (10:53)
[2024-09-07 14:48] VITALS: BMI 27.2
[2024-09-07] MEDS ORDERED: FENTANYL CITRATE/PF 50 MCG/ML VIAL ONE ×2 (17:00→17:58)
[2024-09-07] MEDS ORDERED: HEPARIN NA (PORCINE) 5,000 UNITS/ML 1ML VIAL ONE ×2 (17:08→18:30)
[2024-09-07] MEDS: ATORVASTATIN CA 10 MG TABLET (FP) PO SCH (21:29)
[2024-09-07] MEDS: SENNOSIDES/DOCUSATE COMBO (SENNA PLUS) TABLET (UD) PO SCH (21:30)
[2024-09-07] MEDS: CHLORHEXIDINE GLUCONATE 4% CLEANSER FOR DECOLONIZATION TP SCH (21:30)
[2024-09-07] MEDS: LATANOPROST 0.005% OPHTH SOLN 2.5ML BOTTLE OU SCH (21:30)
[2024-09-08] MEDS ORDERED: ONDANSETRON 4 MG/2 ML VIAL ONE (00:46)
[2024-09-08] MEDS: ONDANSETRON 4 MG/2 ML VIAL IVPUSH PRN (01:16)
[2024-09-08] MEDS: ACETAMINOPHEN 1000 MG/100 ML BAG IVPB PRN (06:23)
[2024-09-08 07:25] LABS: MCHC 31.2 g/dl (32.2-35.5); MEAN CELL VOLUME 88.3 fl (79.4-94.8); MEAN PLT VOLUME 11.0 fl (9.4-12.3); RDW 13.5 % (12.4-16.6)
[2024-09-08 08:05] LABS: INR 1.13 (0.83-1.09); PROTHROMBIN TIME (PATIENT) 12.3 SEC (9.7-13.0)
[2024-09-08 08:07] LABS: ACTIVATED PTT 34.1 SECONDS (25.2-36.5)
[2024-09-08 08:17] LABS: CO2 32.0 mmol/L (21-32); GLUCOSE,RANDOM 97.0 mg/dL (74-106)
[2024-09-08 08:20] LABS: CREATININE 0.6 mg/dL (0.55-1.3); SGOT/AST 15.0 U/L (15-37); SGPT/ALT 13.0 U/L (13-61)
[2024-09-08 08:21] LABS: ALK PHOS 56.0 U/L (45-117); TOT PROT 5.2 g/dl (6.4-8.2)
[2024-09-08] MEDS: HEPARIN NA (PORCINE) 5,000 UNITS/ML 1ML VIAL IVPUSH PRN (08:24)
[2024-09-08] MEDS ORDERED: ONDANSETRON 4 MG/2 ML VIAL IVPUSH PRN (19:24)
[2024-09-08] MEDS ORDERED: ACETAMINOPHEN 1000 MG/100 ML BAG IVPB PRN (19:24)
[2024-09-08] MEDS ORDERED: HEPARIN NA (PORCINE) 5,000 UNITS/ML 1ML VIAL IVPUSH PRN ×2 (19:24)
[2024-09-08] MEDS: HEPARIN INFUSION - 25,000 UNITS/500 ML INFUS.BAG IVPB SCH (19:48)
[2024-09-08] MEDS: SENNOSIDES/DOCUSATE COMBO (SENNA PLUS) TABLET (UD) PO SCH (22:36)
[2024-09-08] MEDS: ATORVASTATIN CA 10 MG TABLET (FP) PO SCH (22:37)
[2024-09-08] MEDS: BUDESONIDE/FORMETEROL FUMARATE 160/4.5 mcg INHALER IH SCH (22:37)
[2024-09-08] MEDS: TIMOLOL 0.5% OPHTHALMIC SOL 5 ML BOTTLE OD SCH (22:38)
[2024-09-08] MEDS: LATANOPROST 0.005% OPHTH SOLN 2.5ML BOTTLE OU SCH (23:41)
[2024-09-09] MEDS: LEVOTHYROXINE NA 75 MCG TABLET (FP) PO SCH (06:57)
[2024-09-09 08:39] LABS: ABSOLUTE IMMATURE GRANULOCYTES 0.15 x10^3/uL (0.0-0.031); BASOPHILS # 0.09 x10^3/uL (0.01-0.08); EOSINOPHIL % 7.0 % (0.7-5.8); EOSINOPHILS # 0.72 x10^3/uL (0.04-0.36); MCHC 31.1 g/dl (32.2-35.5); MEAN CELL VOLUME 89.0 fl (79.4-94.8); MEAN PLT VOLUME 11.1 fl (9.4-12.3); MONOCYTE # 1.03 x10^3/uL (0.24-0.86); MONOCYTE % 10.0 % (4.7-12.5); RDW 13.5 % (12.4-16.6)
[2024-09-09] MEDS: ALBUTEROL SO4 0.083% IH SOL 2.5 MG/3 ML VIAL.NEB. NEB PRN (09:54)
[2024-09-09 10:12] LABS: CO2 34.0 mmol/L (21-32); GLUCOSE,RANDOM 92.0 mg/dL (74-106)
[2024-09-09 10:15] LABS: CREATININE 0.8 mg/dL (0.55-1.3); SGOT/AST 17.0 U/L (15-37); SGPT/ALT 13.0 U/L (13-61)
[2024-09-09 10:16] LABS: TOT PROT 5.5 g/dl (6.4-8.2)
[2024-09-09 10:18] LABS: ALK PHOS 60.0 U/L (45-117)
[2024-09-09] MEDS: POLYETHYLENE GLYCOL (HEALTHYLAX) 3350 17 GM PACKET PO SCH (11:08)
[2024-09-09] MEDS: BISACODYL 10 MG SUPP.RECT PR ONE (11:10)
[2024-09-09] MEDS: PANTOPRAZOLE SODIUM 40 MG VIAL IVPUSH SCH (11:10)
[2024-09-09] MEDS: APIXABAN 5 MG TABLET PO SCH (14:19)
[2024-09-10] MEDS: SODIUM CHLORIDE 500 ML IV STA (09:06)
[2024-09-10 10:29] LABS: ABSOLUTE IMMATURE GRANULOCYTES 0.12 x10^3/uL (0.0-0.031); BASOPHILS # 0.06 x10^3/uL (0.01-0.08); EOSINOPHIL % 2.5 % (0.7-5.8); EOSINOPHILS # 0.24 x10^3/uL (0.04-0.36); MCHC 32.5 g/dl (32.2-35.5); MEAN CELL VOLUME 86.7 fl (79.4-94.8); MEAN PLT VOLUME 10.9 fl (9.4-12.3); MONOCYTE # 0.90 x10^3/uL (0.24-0.86); MONOCYTE % 9.4 % (4.7-12.5); RDW 13.4 % (12.4-16.6)
[2024-09-10 11:02] LABS: CO2 31.0 mmol/L (21-32); GLUCOSE,RANDOM 122.0 mg/dL (74-106)
[2024-09-10 11:05] LABS: CREATININE 0.7 mg/dL (0.55-1.3)
[2024-09-10 13:54] VITALS: BP 107/67; PULSE 81; RESP 26; TEMP 98.1
[2024-09-10] MEDS: SODIUM PHOSPHATE/NA BIPHOS 133 ML ENEMA RC ONE (13:55)
== END 2024-09-10 16:42 | disposition home or self-care (01) | DRG 164 ==
LOC: FER 14:24 → JICU 09-07 00:15 → FER 09-07 00:16 → J6W TELE 09-08 16:28
PROVIDERS: ADMIT Internal Medicine Pulmonary Disease; ATTEND Internal Medicine
PROC: 02CQ3ZZ Extirpation of Matter from Right Pulmonary Artery, Percutaneous Approach (ICD-10-PCS; principal; 2024-09-07)
PROC: 02CR3ZZ Extirpation of Matter from Left Pulmonary Artery, Percutaneous Approach (ICD-10-PCS; 2024-09-07)
PROC: B31SZZZ Fluoroscopy of Right Pulmonary Artery (ICD-10-PCS; 2024-09-07)
PROC: B31SZZZ Fluoroscopy of Right Pulmonary Artery (ICD-10-PCS; 2024-09-07)
DX: I26.94 Multiple subsegmental thrombotic pulmonary emboli without acute cor pulmonale (principal); C34.91 Malignant neoplasm of unspecified part of right bronchus or lung; I24.89 Other forms of acute ischemic heart disease; J43.9 Emphysema, unspecified; E03.9 Hypothyroidism, unspecified; I10 Essential (primary) hypertension; M81.0 Age-related osteoporosis without current pathological fracture; K59.00 Constipation, unspecified; R09.02 Hypoxemia
CPT/HCPCS: 36415; 37187; 37248; 71045-TC-FY; 71275-TC; 75743-TC-FY; 80048; 80053; 82803; 83735; 84100; 84484; 85025; 85027; 85610; 85730; 86803; 87389; 87637-QW; 93005; 93306-TC; 93970-TC; 94640; 97116-GP; 97162-GP; 99285-25; C1725; C1757; C1769; J1644; Q9967